=== PATIENT | female | born 1975 | race African-American/Black ===

== ENCOUNTER 2018-02-09 18:17 | Inpatient (IN) | payer SELFPAY, OTHER ==
[2018-02-09 18:54] LABS: ADD MAN DIFF? NO
[2018-02-09 18:57] LABS: BASO % 1 % (0-3); EOS # 0.2 x10^3/uL (0.0-0.7); EOS % 3 % (0-3); HEMATOCRIT 34.7 % (36.0-47.0); HEMOGLOBIN 11.6 g/dL (12.0-15.5); LYMPH # 2.4 x10^3/uL (1.0-4.8); LYMPH % 45 % (24-48); MEAN CORPUSCULAR HEMOGLOBIN 28 pg (25-35); MEAN CORPUSCULAR HGB CONC 33 g/dL (31-37); MEAN CORPUSCULAR VOLUME 85 fL (79-100); MONO # 0.6 x10^3/uL (0.0-1.1); MONO % 11 % (0-9); NEUT # 2.2 x10^3uL (1.8-7.7); NEUT % 41 % (31-73); PLATELET COUNT 239 x10^3/uL (140-400); RED CELL DISTRIBUTION WIDTH 13.1 % (11.5-14.5); WHITE BLOOD COUNT 5.4 x10^3/uL (4.0-11.0)
[2018-02-09 19:02] LABS: BILIRUBIN,URINE NEGATIVE (NEG); CLARITY,URINE CLEAR; COLOR,URINE YELLOW; GLUCOSE,URINE NEGATIVE (NEG); NITRITE,URINE NEGATIVE (NEG); PROTEIN,URINE NEGATIVE (NEG-TRACE)
[2018-02-09] MEDS: ASPIRIN CHEWABLE 81 MG TABLET. PO (19:05)
[2018-02-09] MEDS: MORPHINE SULFATE 4 MG/ML DISP.SYRIN. IV/SQ (19:07)
[2018-02-09] MEDS: 0.9 % SODIUM CHLORIDE 10 ML DISP.SYRIN. IV (19:07)
[2018-02-09] MEDS: IV NORMAL SALINE 1000ML BAG 1,000 ML IV (19:08)
[2018-02-09 19:09] LABS: BACTERIA,URINE 0 /HPF (0-FEW); RBC,URINE OCC /HPF (0-2); SQUAMOUS EPITHELIAL CELL,UR FEW /LPF; WBC,URINE OCC /HPF (0-4)
[2018-02-09 19:10] LABS: NEG OBC SER NEG; POS OBC SER POS; PREG TEST PT QUAL NEGATIVE (NEG)
[2018-02-09 19:11] LABS: ANION GAP 14 (6-14); BLOOD UREA NITROGEN 9 mg/dL (7-20); CALCIUM 8.9 mg/dL (8.5-10.1); CARBON DIOXIDE 24 mmol/L (21-32); CHLORIDE 106 mmol/L (98-107); CREATININE 0.5 mg/dL (0.6-1.0); GFR 165.3; GLUCOSE 125 mg/dL (70-99); POTASSIUM 3.6 mmol/L (3.5-5.1); SODIUM 144 mmol/L (136-145)
[2018-02-09 19:16] LABS: ALBUMIN 3.7 g/dL (3.4-5.0); ALK PHOS 82 U/L (46-116); ALT (SGPT) 66 U/L (14-59); AST (SGOT) 30 U/L (15-37); DIRECT BILIRUBIN 0.1 mg/dL (0.0-0.2); LIPASE 124 U/L (73-393); MAGNESIUM 1.6 mg/dL (1.8-2.4); TOTAL BILIRUBIN 0.9 mg/dL (0.2-1.0); TOTAL PROTEIN 7.2 g/dL (6.4-8.2)
[2018-02-09 19:17] LABS: TROPONINI < 0.017 ng/mL (0.000-0.055)
[2018-02-09 19:23] LABS: D-DIMER 0.64 ug/mlFEU (0.00-0.50)
[2018-02-09 19:25] LABS: CKMB MASS < 0.5 ng/mL (0.0-3.6); CREATINE KINASE 91 U/L (26-192)
[2018-02-09 19:25] LABS: NT-PRO BNP 542 pg/mL (0-124)
[2018-02-09 19:44] LABS: THYROID STIM HORMONE (TSH) < 0.007 uIU/mL (0.358-3.74)
[2018-02-09] MEDS: IOHEXOL 300 MG/ML 100ML VIAL. IV (20:35)
[2018-02-09] MEDS ORDERED: CONTRAST GIVEN MC (20:45)
[2018-02-09] MEDS ORDERED: ONDANSETRON PF 4 MG/2 ML VIAL. IV (22:45)
[2018-02-09] MEDS ORDERED: ACETAMINOPHEN 325 MG TABLET. PO (22:45)
[2018-02-10] MEDS: 0.9 % SODIUM CHLORIDE 10 ML DISP.SYRIN. IV (00:40)
[2018-02-10] MEDS: IV NORMAL SALINE 1000ML BAG 1,000 ML IV ×3 (01:05→21:44)
[2018-02-10] MEDS: MORPHINE SULFATE 4 MG/ML DISP.SYRIN. IV ×2 (01:05→06:18)
[2018-02-10 01:57] LABS: TROPONINI < 0.017 ng/mL (0.000-0.055)
[2018-02-10 06:38] LABS: TROPONINI < 0.017 ng/mL (0.000-0.055)
[2018-02-10] MEDS ORDERED: ONDANSETRON PF 4 MG/2 ML VIAL. IV (08:30)
[2018-02-10] MEDS ORDERED: BENZONATATE 100 MG CAPSULE. PO (08:30)
[2018-02-10] MEDS ORDERED: guaiFENesin DM 200MG/20MG 10 ML SYRUP PO (08:30)
[2018-02-10] MEDS ORDERED: HYDROcodone/APAP 5/325MG 1 TAB TABLET PO (08:30)
[2018-02-10 09:40] LABS: CHOLESTEROL 112 mg/dL (0-200); HDLC 41 mg/dL (40-60); LDLC 59 mg/dL (0-100); NON-HDL CHOLESTEROL 71 mg/dL (0-129); TRIGLYCERIDES 58 mg/dL (0-150); VLDLC 12 mg/dL (0-40)
[2018-02-10 09:46] LABS: CHOLESTEROL/HDL RATIO 2.7
[2018-02-10] MEDS ORDERED: ALBUTEROL SULFATE 2.5 MG/3 ML NEBU. NEB (10:45)
[2018-02-10] MEDS: amLODIPine BESYLATE 5 MG TABLET PO (12:05)
[2018-02-10] MEDS: traMADol 50 MG TABLET PO ×2 (12:05→18:30)
[2018-02-10] MEDS: ALBUTEROL SULFATE 2.5 MG/3 ML NEBU. NEB (12:32)
[2018-02-10] MEDS: LACTOBACILLUS RHAMNOSUS GG 1 CAPSULE. PO (21:46)
[2018-02-10] MEDS: hydrOXYzine PAMOATE 25 MG CAPSULE PO (21:46)
[2018-02-11] MEDS: LACTOBACILLUS RHAMNOSUS GG 1 CAPSULE. PO ×2 (10:15→21:07)
[2018-02-11] MEDS: amLODIPine BESYLATE 5 MG TABLET PO (10:16)
[2018-02-11] MEDS: traMADol 50 MG TABLET PO (16:32)
[2018-02-11] MEDS: hydrOXYzine PAMOATE 25 MG CAPSULE PO (21:07)
[2018-02-12 02:14] LABS: ANGIOTENSIN CONVERTING ENZYME 94 U/L (14-82)
[2018-02-12] MEDS: amLODIPine BESYLATE 5 MG TABLET PO (09:19)
[2018-02-12] MEDS: LACTOBACILLUS RHAMNOSUS GG 1 CAPSULE. PO (09:19)
[2018-02-12] MEDS ORDERED: methIMAzole 10 MG TABLET PO (13:00)
== END 2018-02-12 14:00 | disposition home or self-care (01) | DRG 645 ==
LOC: ER 18:17 → 5 SOUTH 23:00
DX: E05.90 Thyrotoxicosis, unspecified without thyrotoxic crisis or storm (principal); D86.9 Sarcoidosis, unspecified; E04.1 Nontoxic single thyroid nodule; R07.89 Other chest pain; J45.30 Mild persistent asthma, uncomplicated; I10 Essential (primary) hypertension; K21.9 Gastro-esophageal reflux disease without esophagitis; L65.9 Nonscarring hair loss, unspecified
CPT/HCPCS: 36415; 71046; 71275; 76536; 80048; 80061; 80076; 81001; 82164; 82553; 83690; 83735; 83880; 84439; 84443; 84481; 84484; 84703; 85025; 85379; 93005; 93306; 94640; 94760; 96374; 96375; 99285; 99285-25; J1956; J2060; J2270; J7030; J7613; Q0177; Q9967

== ENCOUNTER 2018-10-03 09:55 | Emergency (ER) | payer OTHER ==
[~2018-10-03] VITALS: Ht 160 cm; Wt 68.0 kg
[~2018-10-03 09:55] MED LIST: AMLO5TAB4 PO; BENZ100C PO; HYDR50CA2 PO; LEVO500T59 PO; METH-184 PO; PROAIR HFA8.5 GM INH; TRAM-48 PO
[2018-10-03 10:20] VITALS: BP 149/76
[2018-10-03] MEDS ORDERED: NAPROXEN 500 MG TABLET PO STA (10:33)
[2018-10-03] MEDS ORDERED: CYCLOBENZAPRINE 10 MG TABLET. PO ONE (10:45)
[2018-10-03] MEDS ORDERED: HYDROcodone/APAP 5/325MG 1 TAB TABLET PO ONE ×2 (10:45→11:30)
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
[2018-10-03] MEDS ORDERED: CYCL10TA2 PO (11:14)
[2018-10-03] MEDS ORDERED: NAPR-514 PO (11:14)
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
== END 2018-10-03 11:36 | disposition home or self-care (01) ==
LOC: ER 09:55
DX: S13.8XXA Sprain of joints and ligaments of other parts of neck, initial encounter (principal); M47.892 Other spondylosis, cervical region; J45.909 Unspecified asthma, uncomplicated; Z98.890 Other specified postprocedural states; V43.52XA Car driver injured in collision with other type car in traffic accident, initial encounter; Y93.89 Activity, other specified; Y92.410 Unspecified street and highway as the place of occurrence of the external cause; Y99.8 Other external cause status
CPT/HCPCS: 72040; 99284

== ENCOUNTER 2018-10-18 13:20 | Emergency (ER) | payer OTHER ==
[~2018-10-18] VITALS: Ht 160 cm; Wt 63.5 kg
[2018-10-18 13:20] VITALS: BP 149/80
[~2018-10-18 13:20] MED LIST changes: +CYCL10TA2 PO; +NAPR-514 PO
[2018-10-18] MEDS ORDERED: KETOROLAC 60 MG/2 ML INJ. IM ONE (13:45)
[2018-10-18] MEDS ORDERED: ORPHENADRINE CITRATE 60 MG/2 ML VIAL. IM ONE (13:45)
[2018-10-18] MEDS ORDERED: ORPH100T PO (14:12)
[2018-10-18] MEDS ORDERED: NAPR500T8 PO (14:12)
--- NOTE | 2018-10-20 23:50 | PHYS DOC ---
Past Medical History Past Medical History: Asthma Past Surgical History: Additional Past Surgical Histo: times 3 Alcohol Use: Occasionally Drug Use: None Adult General Chief Complaint Chief Complaint: BACK PAIN OR INJURY HPI HPI Please see paper documentation completed during downtime. Review of Systems Review of Systems Current Medications Current Medications Current Medications Medications (Trade) Dose Ordered Sig/Jayden Start Time Stop Time Status Last Admin Dose Admin Ketorolac Tromethamine (Toradol Im) 30 mg 1X ONCE 10/18/18 13:45 10/18/18 13:46 DC 10/18/18 13:48 30 MG Orphenadrine Citrate (Norflex) 60 mg 1X ONCE 10/18/18 13:45 10/18/18 13:46 DC 10/18/18 13:48 60 MG Allergies Allergies Allergies Coded Allergies Type Severity Reaction Last Updated Verified No Known Drug Allergies 01/17/16 No Physical Exam Physical Exam Current Patient Data Vital Signs Vital Signs Date Time Temp Pulse Resp B/P (MAP) Pulse Ox O2 Delivery O2 Flow Rate FiO2 10/18/18 13:20 97.9 77 18 149/80 (103) 97 Room Air 97.9 EKG EKG [] Radiology/Procedures Radiology/Procedures [] Course & Med Decision Making Course & Med Decision Making Pertinent Labs and Imaging studies reviewed. (See chart for details) [] Dragon Disclaimer Dragon Disclaimer This electronic medical record was generated, in whole or in part, using a voice recognition dictation system. Departure Departure Impression: Primary Impression: Strain of muscle and tendon of back wall of thorax, initial en... Disposition: HOME, SELF-CARE Condition: STABLE Patient Instructions: Thoracic Strain, [id number] Scripts Orphenadrine Citrate (ORPHENADRINE CITRATE) 100 Mg Tablet.er 1 TAB PO BID PRN for PAIN for 10 Days, #20 TAB 0 Refills Prov: LUCERO MARQUEZ [employer]HANGER [employer]INTER 10/18/18 Naproxen (NAPROXEN) 500 Mg Tablet.dr 1 TAB PO BID for 10 Days, #20 TAB 0 Refills Prov: LUCERO MARQUEZ [employer]HANGER AND PAINTER 10/18/18 LUCERO MARQUEZ [employer]HANGER AND PAINTER Oct 20, 2018 23:50
== END 2018-10-18 14:20 | disposition home or self-care (01) ==
LOC: ER 13:20
DX: S29.012A Strain of muscle and tendon of back wall of thorax, initial encounter (principal); J45.909 Unspecified asthma, uncomplicated; Z98.890 Other specified postprocedural states; X58.XXXA Exposure to other specified factors, initial encounter; Y93.89 Activity, other specified; Y92.89 Other specified places as the place of occurrence of the external cause; Y99.8 Other external cause status
CPT/HCPCS: 96372; 99283; J1885; J2360

== ENCOUNTER 2019-11-03 19:40 | Emergency (ER) | payer SELFPAY ==
[~2019-11-03] VITALS: Ht 162.6 cm; Wt 63.5 kg
[~2019-11-03 19:40] MED LIST changes: +ALBU2.5V8 INH; +NAPR500T8 PO; +ORPH100T PO; -PROAIR HFA8.5 GM INH
--- NOTE | 2019-11-03 20:10 | PHYS DOC ---
Past Medical History Past Medical History: Asthma Past Surgical History: Additional Past Surgical Histo: times 3 Alcohol Use: Occasionally Drug Use: None Adult General Chief Complaint Chief Complaint: SHORTNESS OF BREATH HPI HPI 44-year-old female presents to the emergency Department complaints of shortness of breath, right-sided chest pain. She states his ongoing 3 days. Patient describes cough however clear production. She denies any nausea, vomiting, fever. She has had some diarrhea. She describes history of asthma. They makes her symptoms worse, nothing makes her symptoms better. The right-sided chest pain is tender to palpation underneath her breast. Review of Systems Review of Systems Constitutional: Denies fever or chills [] Eyes: Denies change in visual acuity, redness, or eye pain [] HENT: nasal congestion Respiratory: + cough or shortness of breath [] Cardiovascular: No additional information not addressed in HPI [] GI: Denies abdominal pain, nausea, vomiting, bloody stools or diarrhea [] : Denies dysuria or hematuria [] Musculoskeletal: Denies back pain or joint pain [] Neurologic: Denies headache, focal weakness or sensory changes [] All other systems were reviewed and found to be within normal limits, except as documented in this note. Current Medications Current Medications Current Medications Medications (Trade) Dose Ordered Sig/Jayden Start Time Stop Time Status Last Admin Dose Admin Albuterol/ Ipratropium (Duoneb) 3 ml 1X ONCE 11/03/19 20:15 11/03/19 20:16 DC 11/03/19 20:12 3 ML Ketorolac Tromethamine (Toradol Im) 60 mg 1X ONCE 11/03/19 20:45 11/03/19 20:46 DC 11/03/19 20:38 60 MG Allergies Allergies Allergies Coded Allergies Type Severity Reaction Last Updated Verified No Known Drug Allergies 01/17/16 No Physical Exam Physical Exam Constitutional: Well developed, well nourished, no acute distress, non-toxic appearance. [] HENT: Normocephalic, atraumatic, bilateral external ears normal, oropharynx moist, no oral exudates, nose normal. [] Eyes: PERRLA, EOMI, conjunctiva normal, no discharge. [] Neck: Normal range of motion, no tenderness, supple, no stridor. [] Cardiovascular:Heart rate regular rhythm, no murmur [] Lungs & Thorax: Bilateral breath sounds clear to auscultation, chest is TTP underneath her right breast [] Abdomen: Bowel sounds normal, soft, no tenderness, no masses, no pulsatile masses. [] Skin: Warm, dry, no erythema, no rash. [] Back: No tenderness, no CVA tenderness. [] Extremities: No tenderness, no edema. [] Neurologic: Alert and oriented X 3, no focal deficits noted. [] Psychologic: Affect normal, judgement normal, mood normal. [] Current Patient Data Vital Signs Vital Signs Date Time Temp Pulse Resp B/P (MAP) Pulse Ox O2 Delivery O2 Flow Rate FiO2 11/03/19 20:14 99 Room Air 11/03/19 19:43 98.1 85 18 142/78 (99) 98.1 Lab Values Laboratory Tests Test 11/03/19 20:00 11/03/19 21:15 White Blood Count 5.7 x10^3/uL (4.0-11.0) Red Blood Count 4.35 x10^6/uL (3.50-5.40) Hemoglobin 12.4 g/dL (12.0-15.5) Hematocrit 37.5 % (36.0-47.0) Mean Corpuscular Volume 86 fL (79-100) Mean Corpuscular Hemoglobin 29 pg (25-35) Mean Corpuscular Hemoglobin Concent 33 g/dL (31-37) Red Cell Distribution Width 14.0 % (11.5-14.5) Platelet Count 307 x10^3/uL (140-400) Neutrophils (%) (Auto) 56 % (31-73) Lymphocytes (%) (Auto) 30 % (24-48) Monocytes (%) (Auto) 11 % (0-9) H Eosinophils (%) (Auto) 3 % (0-3) Basophils (%) (Auto) 1 % (0-3) Neutrophils # (Auto) 3.2 x10^3/uL (1.8-7.7) Lymphocytes # (Auto) 1.7 x10^3/uL (1.0-4.8) Monocytes # (Auto) 0.6 x10^3/uL (0.0-1.1) Eosinophils # (Auto) 0.2 x10^3/uL (0.0-0.7) Basophils # (Auto) 0.0 x10^3/uL (0.0-0.2) D-Dimer (Heather) 0.28 ug/mlFEU (0.00-0.50) Sodium Level 140 mmol/L (136-145) Potassium Level 3.9 mmol/L (3.5-5.1) Chloride Level 103 mmol/L (98-107) Carbon Dioxide Level 26 mmol/L (21-32) Anion Gap 11 (6-14) Blood Urea Nitrogen 18 mg/dL (7-20) Creatinine 0.8 mg/dL (0.6-1.0) Estimated GFR (Cockcroft-Gault) 95.2 BUN/Creatinine Ratio 23 (6-20) H Glucose Level 95 mg/dL (70-99) Calcium Level 9.6 mg/dL (8.5-10.1) Total Bilirubin 0.7 mg/dL (0.2-1.0) Aspartate Amino Transferase (AST) 22 U/L (15-37) Alanine Aminotransferase (ALT) 37 U/L (14-59) Alkaline Phosphatase 65 U/L (46-116) Troponin I Quantitative < 0.017 ng/mL (0.000-0.055) ZQ-Hyf-B-Type Natriuretic Peptide 48 pg/mL (0-124) Total Protein 7.8 g/dL (6.4-8.2) Albumin 4.2 g/dL (3.4-5.0) Albumin/Globulin Ratio 1.2 (1.0-1.7) Influenza Type A Antigen Negative (NEGATIVE) Influenza Type B Antigen Negative (NEGATIVE) Urine Collection Type Unknown Urine Color Yellow Urine Clarity Cloudy Urine pH 6.5 Urine Specific [place] >=1.030 Urine Protein Negative mg/dL (NEG-TRACE) Urine Glucose (UA) Negative mg/dL (NEG) Urine Ketones (Stick) Negative mg/dL (NEG) Urine Blood Negative (NEG) Urine Nitrite Negative (NEG) Urine Bilirubin Negative (NEG) Urine Urobilinogen Dipstick 1.0 mg/dL (0.2 mg/dL) Urine Leukocyte Esterase Moderate (NEG) Urine RBC Rare /HPF (0-2) Urine WBC 11-20 /HPF (0-4) Urine Squamous Epithelial Cells Mod /LPF Urine Bacteria Few /HPF (0-FEW) Urine Mucus Mod /LPF Urine Trichomonas Present Laboratory Tests 11/03/19 20:00 Laboratory Tests 11/03/19 20:00 EKG EKG [] Radiology/Procedures Radiology/Procedures Chest xray reviewed with out evidence of acute consolidation or pulmonary edema[] Course & Med Decision Making Course & Med Decision Making Pertinent Labs and Imaging studies reviewed. (See chart for details) []44-year-old female presents to the emergency Department complaints of shortness of breath, right-sided chest pain. She states his ongoing 3 days. Patient describes cough however clear production. She denies any nausea, vomiting, fever. She has had some diarrhea. She describes history of asthma. They makes her symptoms worse, nothing makes her symptoms better. The right- sided chest pain is tender to palpation underneath her breast. Labs reviewed Imaging without acute process - no consolidation appreciated Duoneb x 1, Toradol 60mg IM Discussed findings with patient Recommend dc home with follow up as outpatient Albuterol rx provided upon discharge Return precautions provided Dragmacario Disclaimer Dragmacario Disclaimer This electronic medical record was generated, in whole or in part, using a voice recognition dictation system. Departure Departure Impression: Primary Impression: URI (upper respiratory infection) Additional Impression: Asthma Disposition: HOME, SELF-CARE Condition: IMPROVED Referrals: NO PCP (PCP) Patient Instructions: Asthma, Adult, [id number], Chest Pain (Nonspecific), Jpyc-[id number], Upper Respiratory Infection, Adult, [id number] Additional Instructions: Recommend follow up with PCP 3 - 5 days Return to the ER with worsening symptoms, intractable pain, fever, altered mental status Tylenol/Motrin as needed for pain Rx provided for albuterol INH upon discharge Scripts Albuterol Sulfate (PROAIR HFA INHALER) 8.5 Gm Hfa.aer.ad 2 PUFF INH PRN Q6HRS PRN for SHORTNESS OF BREATH, #1 INHALER 0 Refills Prov: ANTONIETA ALVAREZ MD 11/03/19 Problem Qualifiers Primary Impression: URI (upper respiratory infection) URI type: unspecified URI Qualified Codes: J06.9 - Acute upper respiratory infection, unspecified Additional Impression: Asthma Asthma severity: mild Asthma persistence: unspecified Asthma complication type: unspecified Qualified Codes: J45.909 - Unspecified asthma, uncomplicated ANTONIETA ALVAREZ MD Nov 03, 2019 20:10
[2019-11-03 20:13] LABS: BASO % 1 % (0-3); EOS # 0.2 x10^3/uL (0.0-0.7); EOS % 3 % (0-3); HEMATOCRIT 37.5 % (36.0-47.0); HEMOGLOBIN 12.4 g/dL (12.0-15.5); LYMPH # 1.7 x10^3/uL (1.0-4.8); LYMPH % 30 % (24-48); MEAN CORPUSCULAR HEMOGLOBIN 29 pg (25-35); MEAN CORPUSCULAR HGB CONC 33 g/dL (31-37); MEAN CORPUSCULAR VOLUME 86 fL (79-100); MONO # 0.6 x10^3/uL (0.0-1.1); MONO % 11 % (0-9); NEUT # 3.2 x10^3/uL (1.8-7.7); NEUT % 56 % (31-73); PLATELET COUNT 307 x10^3/uL (140-400); RED BLOOD COUNT 4.35 x10^6/uL (3.50-5.40); WHITE BLOOD COUNT 5.7 x10^3/uL (4.0-11.0)
[2019-11-03] MEDS ORDERED: IPRATRPIUM/ALBUTEROL 0.5/2.5MG 3 ML NEBU. NEB ONE (20:15)
[2019-11-03 20:22] LABS: CALCIUM 9.6 mg/dL (8.5-10.1); CREATININE 0.8 mg/dL (0.6-1.0); GFR 95.2; POTASSIUM 3.9 mmol/L (3.5-5.1)
[2019-11-03 20:28] LABS: ALBUMIN 4.2 g/dL (3.4-5.0); ALBUMIN/GLOBULIN RATIO 1.2 (1.0-1.7); TOTAL BILIRUBIN 0.7 mg/dL (0.2-1.0); TOTAL PROTEIN 7.8 g/dL (6.4-8.2)
[2019-11-03 20:37] LABS: INFLUENZA A PATIENT NEGATIVE (NEGATIVE); INFLUENZA B PATIENT NEGATIVE (NEGATIVE)
[2019-11-03] MEDS ORDERED: KETOROLAC 60 MG/2 ML VIAL. IM ONE (20:45)
[2019-11-03 21:23] LABS: BILIRUBIN,URINE NEGATIVE (NEG); CLARITY,URINE CLOUDY; COLOR,URINE YELLOW; NITRITE,URINE NEGATIVE (NEG); PH,URINE 6.5; PROTEIN,URINE NEGATIVE (NEG-TRACE)
[2019-11-03 21:28] LABS: SQUAMOUS EPITHELIAL CELL,UR MOD /LPF
[2019-11-03 21:29] LABS: BACTERIA,URINE FEW /HPF (0-FEW); RBC,URINE RARE /HPF (0-2)
[2019-11-03 21:30] LABS: TRICHOMONAS,URINE PRESENT
[2019-11-03 21:47] VITALS: BP 165/78
[2019-11-03] MEDS ORDERED: ALBU2.5V8 INH (21:53)
--- NOTE | 2019-11-03 22:21 | RAD ---
Study: PORTABLE CHEST 1V Indication: Shortness of breath. Comparison: 02/09/2018 Findings: EKG leads overlie the chest. Unchanged configuration of the cardiomediastinal silhouette. No overt central vascular congestion. No pneumothorax, lobar infiltrate or pleural effusion. Granulomas again noted. No free air seen under the diaphragm. Grossly intact osseous structures. Impression: No acute radiographic abnormality of the chest. Electronically signed by: SHIVANI TREVINO MD (11/03/2019 10:18 PM) [facility]
--- NOTE | 2019-11-04 10:11 | EKG ---
[facility] [address] [place] [address] Test Date: 2019-11-03 Test Time: 19:53:45 Pat Name: ROGE PHIPPS Department: Room: Gender: F Crts: : 1975 Requested By: ANTONIETA ALVAREZ Order Number: [id number] Reading MD: Measurements Intervals [place] Rate: 85 P: 63 ID: [id number] QRS: 47 QRSD: 76 T: 63 QT: 368 QTc: 438 Interpretive Statements SINUS RHYTHM LEFT ATRIAL ABNORMALITY ABNORMAL ECG RI6.01 No previous ECG available for comparison
== END 2019-11-03 22:03 | disposition home or self-care (01) ==
LOC: ER 19:40
DX: J06.9 Acute upper respiratory infection, unspecified (principal); J45.909 Unspecified asthma, uncomplicated
CPT/HCPCS: 36415; 71045; 80053; 81001; 83880; 84484; 85025; 85379; 87086; 87804; 93005; 94640; 96372; 99285; J1885; J7620

== ENCOUNTER 2019-12-02 18:08 | Emergency (ER) | payer SELFPAY ==
[2019-12-02 18:15] VITALS: BP 124/70
[2019-12-02] MEDS ORDERED: predniSONE 10 MG TABLET PO ONE (18:45)
[2019-12-02] MEDS ORDERED: IPRATRPIUM/ALBUTEROL 0.5/2.5MG 3 ML NEBU. NEB ONE (18:45)
[2019-12-02] MEDS ORDERED: BENZONATATE 100 MG CAPSULE. PO ONE (18:45)
--- NOTE | 2019-12-02 18:48 | PHYS DOC ---
Past Medical History Past Medical History: Asthma (MARTÍN ALVAREZ APRN) Past Surgical History: Additional Past Surgical Histo: times 3 (MARTÍN ALVAREZ APRN) Alcohol Use: Occasionally Drug Use: None (MARTÍN ALVAREZ APRN) Attending Signature I have participated in the care of this patient and I have reviewed and agree w ith all pertinent clinical information above including history, exam, and recommendations. (ANTONIETA ALVAREZ MD) Adult General Chief Complaint Chief Complaint: COUGH HPI HPI Patient is a 44 year old female who presents to the ED today complaining of a cough that began 4 months ago. Patient denies any fever. Denies any nasal congestion. She reports she was seen in the ED November 03, 2019 for the same complaint. (MARTÍN ALVAREZ APRN) Review of Systems Review of Systems Constitutional: Denies fever or chills [] Eyes: Denies change in visual acuity, redness, or eye pain [] HENT: Denies nasal congestion or sore throat [] Respiratory: Reports cough, denies shortness of breath [] Cardiovascular: No additional information not addressed in HPI [] GI: Denies abdominal pain, nausea, vomiting, bloody stools or diarrhea [] : Denies dysuria or hematuria [] Musculoskeletal: Denies back pain or joint pain [] Integument: Denies rash or skin lesions [] Neurologic: Denies headache, focal weakness or sensory changes [] All other systems were reviewed and found to be within normal limits, except as documented in this note. (MARTÍN ALVAREZ APRN) Current Medications Current Medications Current Medications Medications (Trade) Dose Ordered Sig/Jayden Start Time Stop Time Status Last Admin Dose Admin Albuterol/ Ipratropium (Duoneb) 3 ml 1X ONCE 12/02/19 18:45 12/02/19 18:46 DC 12/02/19 18:33 3 ML Benzonatate (Tessalon Perle) 100 mg 1X ONCE 12/02/19 18:45 12/02/19 18:46 DC 12/02/19 18:26 100 MG Prednisone (Prednisone) 50 mg 1X ONCE 12/02/19 18:45 12/02/19 18:46 DC 12/02/19 18:26 50 MG (ANTONIETA ALVAREZ MD) Allergies Allergies Allergies Coded Allergies Type Severity Reaction Last Updated Verified No Known Drug Allergies 2/26/16 No (ANTONIETA ALVAREZ MD) Physical Exam Physical Exam Constitutional: Well developed, well nourished, no acute distress, non-toxic appearance. [] HENT: Normocephalic, atraumatic, bilateral external ears normal, oropharynx moist, no oral exudates, nose normal. [] Eyes: PERRLA, EOMI, conjunctiva normal, no discharge. [] Neck: Normal range of motion, no tenderness, supple, no stridor. [] Cardiovascular:Heart rate regular rhythm, no murmur [] Lungs & Thorax: Bilateral breath sounds clear to auscultation [] Abdomen: Bowel sounds normal, soft, no tenderness, no masses, no pulsatile masses. [] Skin: Warm, dry, no erythema, no rash. [] Back: No tenderness, no CVA tenderness. [] Extremities: No tenderness, no cyanosis, no clubbing, ROM intact, no edema. [] Neurologic: Alert and oriented X 3, normal motor function, normal sensory function, no focal deficits noted. [] Psychologic: Affect normal, judgement normal, mood normal. [] (MARTÍN ALVAREZ APRN) Current Patient Data Vital Signs Vital Signs Date Time Temp Pulse Resp B/P (MAP) Pulse Ox O2 Delivery O2 Flow Rate FiO2 12/02/19 18:36 97 Room Air 12/02/19 18:15 98.4 73 18 124/70 (88) 98.4 (ANTONIETA ALVAREZ MD) Lab Values Laboratory Tests Test 12/02/19 17:27 Influenza Type A Antigen Negative (NEGATIVE) Influenza Type B Antigen Negative (NEGATIVE) (ANTONIETA ALVAREZ MD) Lab Values Laboratory Tests Test 12/02/19 17:27 Influenza Type A Antigen Negative (NEGATIVE) Influenza Type B Antigen Negative (NEGATIVE) (MARTÍN ALVAREZ APRN) EKG EKG [] (MARTÍN ALVAREZ APRN) Radiology/Procedures Radiology/Procedures [] (MARTÍN ALVAREZ APRN) Course & Med Decision Making Course & Med Decision Making Pertinent Labs and Imaging studies reviewed. (See chart for details) This is a 44-year-old female patient presenting to the ED today with complaints of a cough for 4 months. Patient is afebrile, chest x-ray is negative. Discharged to home with albuterol inhaler, prednisone and Tessalon Perles. Encouraged to follow-up with a PCP and the dye expert which we provided. (MARTÍN ALVAREZ APRN) Kapil Disclaimer Dragon Disclaimer This electronic medical record was generated, in whole or in part, using a voice recognition dictation system. (MARTÍN ALVAREZ APRN) Departure Departure Impression: Primary Impression: Bronchitis Disposition: HOME, SELF-CARE Condition: STABLE Referrals: NO PCP (PCP) JENNIFER LEE MD follow up next week Patient Instructions: Acute Bronchitis Additional Instructions: You were evaluated in the emergency room for cough for 4 months. Your chest x- ray is negative. We provided you a list of primary care doctor as well as a dye expert / lung doctor, please call them on Wednesday and follow. Take the prescribed medications as ordered. Scripts Albuterol Sulfate (Proair Hfa) 8.5 Gm Hfa.aer.ad 2 PUFF IH PRN Q4-6HRS PRN for wheezing for 21 Days, #1 INHALER 0 Refills Prov: MARTÍN ALVAREZ APRN 12/02/19 Benzonatate (TESSALON PERLE) 100 Mg Capsule 1 CAP PO TID, #30 CAP Prov: MARTÍN ALVAREZ APRN 12/02/19 Prednisone (PREDNISONE) 50 Mg Tablet 1 TAB PO DAILY, #5 TAB Prov: MARTÍN ALVAREZ APRN 12/02/19 MARTÍN ALVAREZ APRN Dec 02, 2019 18:48 ANTONIETA ALVAREZ MD Dec 02, 2019 20:26
[2019-12-02 18:49] LABS: INFLUENZA A PATIENT NEGATIVE (NEGATIVE); INFLUENZA B PATIENT NEGATIVE (NEGATIVE)
[2019-12-02] MEDS ORDERED: ALBU2.5V8 IH (19:01)
[2019-12-02] MEDS ORDERED: BENZ100C PO (19:01)
[2019-12-02] MEDS ORDERED: PRED50TA PO (19:01)
--- NOTE | 2019-12-02 19:53 | RAD ---
CHEST PA LATERAL History: Cough. Comparison with 11/03/2019. Cardiomediastinal silhouette is stable. No evidence of pneumothorax, pleural effusion or pneumothorax. Bones appear grossly intact. IMPRESSION: No evidence of consolidating infiltrate. Electronically signed by: Simba Martinez MD (12/02/2019 7:50 PM) [facility]
== END 2019-12-02 19:15 | disposition home or self-care (01) ==
LOC: ER 18:08
DX: J45.909 Unspecified asthma, uncomplicated (principal); Z98.890 Other specified postprocedural states
CPT/HCPCS: 71046; 87804; 99285; J7512; J7620

== ENCOUNTER 2022-02-28 16:08 | Emergency (ER) | payer MEDICAID ==
[~2022-02-28] VITALS: Ht 160 cm; Wt 73.0 kg
[~2022-02-28 16:08] MED LIST changes: +ALBU2.5V8 IH; +CYCL10TA19 PO; -CYCL10TA2 PO; +PRED50TA PO
--- NOTE | 2022-02-28 16:43 | PHYS DOC ---
Past Medical History Past Medical History: Asthma Past Surgical History: Additional Past Surgical Histo: times 3 Smoking Status: Never Smoker Alcohol Use: Occasionally Drug Use: None General Adult EDM: Chief Complaint: THUMB HPI: HPI: Patient is a 46 year old female who presents the ED today complaining of 8 out of 10 left thumb pain, symptoms began last night. Patient denies any injuries. States the pain is worse on touching the pump. Describes the pain as throbbing and constant. Denies anything relieving the pain. She states she tried taking Tylenol with no relief Review of Systems: Review of Systems: Constitutional: Denies fever or chills. [] Musculoskeletal: Reports left thumb pain Integument: Denies rash. [] Neurologic: Denies headache, focal weakness or sensory changes. [] s. [] Psychiatric: Denies depression or anxiety. [] Heart Score: C/O Chest Pain: N/A Risk Factors: Risk Factors: DM, Current or recent (<one month) smoker, HTN, HLP, family history of CAD, obesity. Risk Scores: Score 0 - 3: 2.5% MACE over next 6 weeks - Discharge Home Score 4 - 6: 20.3% MACE over next 6 weeks - Admit for Clinical Observation Score 7 - 10: 72.7% MACE over next 6 weeks - Early Invasive Strategies Allergies: Allergies: Allergies Coded Allergies Type Severity Reaction Last Updated Verified No Known Drug Allergies 01/17/16 No Physical Exam: PE: Constitutional: Well developed, well nourished, no acute distress, non-toxic appearance. [] Skin: Warm, dry, no erythema, no rash. [] Back: No tenderness, no CVA tenderness. [] Extremities: Left distal thumb with mild soft tissue swelling around the PIP joint, tenderness around this joint. Range of motion is intact, adequate radial sensation to the left thumb, +2 left radial pulse. Cap refill less than 2 seconds to left fingers Neurologic: Alert and oriented X 3, normal motor function, normal sensory function, no focal deficits noted. [] Psychologic: Affect normal, judgement normal, mood normal. [] Current Patient Data: Vital Signs: Vital Signs Date Time Temp Pulse Resp B/P (MAP) Pulse Ox O2 Delivery O2 Flow Rate FiO2 02/28/22 16:19 98.5 67 16 169/89 (115) 97 Room Air 98.5 EKG: EKG: [] Radiology/Procedures: Radiology/Procedures: []PROCEDURE: FINGER(S) LEFT XR FINGER(S)_LEFT 2+VIEWS Clinical indications: Reason: left thumb pain FINDINGS/ IMPRESSION: No acute fracture is seen. There is lateral subluxation of the first metacarpal bone with respect to the trapezium bone. This may be due to ligament injury. Mild DJD of the first metacarpal phalangeal joint and the first interphalangeal joint is seen. Electronically signed by: Ga Freeman MD (02/28/2022 5:29 PM) [id number] DICTATED and SIGNED BY: GA FREEMAN MD DATE: 02/28/221726 Course & Med Decision Making: Course & Med Decision Making Pertinent Labs and Imaging studies reviewed. (See chart for details) This a 46-year-old female patient presented to the ED today with left arm pain that began yesterday, no known injury. Left thumb x-rays interpreted by radiologist no acute fracture is seen. There is lateral subluxation of the first metacarpal bone with respect to the trapezium bone. This may be due to ligament injury. Mild DJD of the first metacarpal phalangeal joint and the first interphalangeal joint is seen. Patient has no injury to the thumb. CBC, uric acid and BMP are normal. Discharge to home. Splint applied to the left arm by the ED RN, neurovascular exam done by the RN is normal. Ice elevation encouraged. Follow-up with Ortho. Dick Disclaimer: Kapil Disclaimer: This electronic medical record was generated, in whole or in part, using a voice recognition dictation system. Departure Departure Impression: Primary Impression: Degenerative joint disease of thumb Qualified Codes: M18.12 - Unilateral primary osteoarthritis of first carpometacarpal joint, left hand Additional Impression: Pain of left thumb Disposition: HOME / SELF CARE / HOMELESS Condition: STABLE Referrals: UNKNOWN PCP NAME (PCP) TANIKA ESPINOZA Jr. DO follow up in one week Patient Instructions: Arthritis, Degenerative-Brief Additional Instructions: You were evaluated in the emergency room for thumb pain. Your thumb x-rays are negative for any acute findings. You have arthritis in your thumb. Try to ice and elevate the extremity. Wear the splint provided as tolerated. Take the prescribed medications as ordered Scripts Methylprednisolone (MEDROL) 4 Mg Tab.ds.pk 1 PKG PO UD, #1 PKG Prov: MARTÍN ALVAREZ APRN 02/28/22 Meloxicam (MOBIC) 7.5 Mg Tablet 1 TAB PO DAILY, #30 TAB 1 Refill Prov: MARTÍN ALVAREZ APRN 02/28/22 MARTÍN ALVAREZ APRN Feb 28, 2022 16:43
[2022-02-28 17:25] LABS: BASO % 1 % (0-3); EOS # 0.1 x10^3/uL (0.0-0.7); EOS % 3 % (0-3); HEMOGLOBIN 12.9 g/dL (12.0-15.5); LYMPH # 1.7 x10^3/uL (1.0-4.8); LYMPH % 39 % (24-48); MEAN CORPUSCULAR HEMOGLOBIN 29 pg (25-35); MEAN CORPUSCULAR HGB CONC 34 g/dL (31-37); MEAN CORPUSCULAR VOLUME 86 fL (79-100); MONO # 0.4 x10^3/uL (0.0-1.1); MONO % 9 % (0-9); NEUT # 2.2 x10^3/uL (1.8-7.7); NEUT % 49 % (31-73); PLATELET COUNT 299 x10^3/uL (140-400); RED BLOOD COUNT 4.43 x10^6/uL (3.50-5.40); RED CELL DISTRIBUTION WIDTH 13.4 % (11.5-14.5); WHITE BLOOD COUNT 4.4 x10^3/uL (4.0-11.0)
--- NOTE | 2022-02-28 17:31 | RAD ---
XR FINGER(S)_LEFT 2+VIEWS Clinical indications: Reason: left thumb pain FINDINGS/ IMPRESSION: No acute fracture is seen. There is lateral subluxation of the first metacarpal bone with respect to the trapezium bone. This may be due to ligament injury. Mild DJD of the first metacarpal phalangeal joint and the first interphalangeal joint is seen. Electronically signed by: Servando Freeman MD (02/28/2022 5:29 PM) [id number]
[2022-02-28 17:50] LABS: CALCIUM 9.2 mg/dL (8.5-10.1); CREATININE 0.6 mg/dL (0.6-1.0); GFR 131.4; POTASSIUM 3.9 mmol/L (3.5-5.1)
[2022-02-28 17:53] LABS: URIC ACID 3.9 mg/dL (2.6-6.0)
[2022-02-28] MEDS ORDERED: MELO7.5T5 PO (18:12)
[2022-02-28] MEDS ORDERED: METH4TAB2 PO (18:12)
== END 2022-02-28 18:28 | disposition home or self-care (01) ==
LOC: ER 16:08
DX: M79.645 Pain in left finger(s) (principal); M18.12 Unilateral primary osteoarthritis of first carpometacarpal joint, left hand; J45.909 Unspecified asthma, uncomplicated
CPT/HCPCS: 29125; 36415; 73140; 80048; 84550; 85025; 99284